=== PATIENT | male | born 1990 | race Caucasian/White ===

== ENCOUNTER 2017-10-29 10:53 | Emergency (ER) | payer SELFPAY ==
[~2017-10-29] VITALS: Ht 182.9 cm; Wt 74.0 kg
[2017-10-29] MEDS ORDERED: LORAZEPAM 0.5MG TABLET PO ONE (11:30)
[2017-10-29 12:22] VITALS: BP 118/72
== END 2017-10-29 12:24 | disposition home or self-care (01) ==
LOC: ER 11:02
DX: T43.621A Poisoning by amphetamines, accidental (unintentional), initial encounter (principal); F12.90 Cannabis use, unspecified, uncomplicated
CPT/HCPCS: 99283